=== PATIENT | male | born 1965 | race Two or more races ===

== ENCOUNTER 2020-08-12 13:08 | Emergency (ER) | payer SELFPAY ==
[~2020-08-12] VITALS: Ht 157.5 cm; Wt 86.2 kg
[2020-08-12 14:35] LABS: BASOPHILS % 0.2 % (0.0-2.0); EOSINOPHILS % 0.1 % (0.0-5.0); HEMATOCRIT. 44.4 % (42.0-52.0); HEMOGLOBIN. 15.3 g/dL (14.0-18.0); LYMPHOCYTES % 11.5 % (20.0-50.0); MEAN CORPUSCULAR HEMOGLOBIN 31.7 pg (28.0-32.0); MEAN PLATELET VOLUME 8.6 fl (7.4-10.4); MONOCYTES % 3.9 % (2.0-8.0); NEUTROPHILS % 84.3 % (40.0-76.0); PLATELET 269 x1000/uL (130-400); RED BLOOD CELL COUNT 4.83 mill/uL (4.7-6.1); RED CELL DISTRIBUTION WIDTH 13.2 % (11.6-14.6)
[2020-08-12 14:42] LABS: CHLORIDE 103 mEq/L (98-107)
[2020-08-12 14:45] LABS: ETHANOL BLOOD < 10 mg/dL
[2020-08-12 16:09] VITALS: BP 124/74
[2020-08-12 16:15] LABS: *AMPHETAMINES SCREEN URINE NEGATIVE (NEGATIVE); *BARBITURATES SCREEN URINE NEGATIVE (NEGATIVE); *BENZODIAZEPINES SCREEN URINE NEGATIVE (NEGATIVE); *COCAINE SCREEN URINE NEGATIVE (NEGATIVE); METHADONE URINE SCREEN NEGATIVE (NEGATIVE); OPIATES URINE SCREEN NEGATIVE (NEGATIVE); PHENCYCLIDINE URINE SCREEN NEGATIVE (NEGATIVE)
[2020-08-12 16:17] LABS: CANNABINOID URINE SCREEN NEGATIVE (NEGATIVE)
[2020-08-12] MEDS ORDERED: LEVETIRACETAM 250MG TABLET PO ONE (17:30)
[2020-08-12] MEDS ORDERED: LEVETIRACETAM 500MG TABLET PO ONE (18:00)
== END 2020-08-12 17:56 | disposition home or self-care (01) ==
LOC: ER 13:08 → CANBEDREQ 17:27 → ER 17:56
DX: R41.1 Anterograde amnesia (principal); R93.0 Abnormal findings on diagnostic imaging of skull and head, not elsewhere classified; R51.9 Headache, unspecified; G40.209 Localization-related (focal) (partial) symptomatic epilepsy and epileptic syndromes with complex partial seizures, not intractable, without status epilepticus; I10 Essential (primary) hypertension; E78.00 Pure hypercholesterolemia, unspecified
CPT/HCPCS: 36415; 70551; 80053; 80305; 80320; 82962; 85025; 93005; 99285; G0480